=== PATIENT | female | born 1985 | race Caucasian/White ===

== ENCOUNTER 2018-10-18 08:20 | Emergency (ER) | payer MEDICAID ==
[2018-10-18] MEDS: ONDANSETRON (ODT) 4 MG TAB ODT (08:52)
[2018-10-18 09:04] LABS: ADD UMIC YES; UR ASCORBIC ACID NEGATIVE (NEGATIVE); UR BILIRUBIN (Dip) NEGATIVE (NEGATIVE); UR BLOOD (Dip) NEGATIVE (NEGATIVE); UR CLARITY SLIGHTLY CLOUDY (CLEAR); UR COLOR YELLOW (YELLOW); UR GLUCOSE (Dip) NEGATIVE (NEGATIVE); UR KETONES (Dip) NEGATIVE (NEGATIVE); UR LEUKOCYTE ESTERASE (Dip) 1+ Leu/ul (NEGATIVE); UR NITRITE (Dip) NEGATIVE (NEGATIVE); UR RBC 2 /HPF (0-5); UR SPECIFIC GRAVITY (Dip) 1.019 (1.003-1.030); UR SQUAMOUS EPITHELIAL CELL FEW /HPF (FEW); UR TOTAL PROTEIN (Dip) NEGATIVE (NEGATIVE); UR UROBILINOGEN (Dip) NEGATIVE (NEGATIVE); UR WBC 1 /HPF (0-5)
== END 2018-10-18 11:05 | disposition home or self-care (01) ==
LOC: FTE 08:20
DX: N30.00 Acute cystitis without hematuria (principal)
CPT/HCPCS: 76801; 76817; 81001; 81025; 99284-25